=== PATIENT | female | born 2000 | race Caucasian/White ===

== ENCOUNTER 2025-07-15 09:18 | Emergency (ER) | payer OTHER, SELFPAY ==
--- NOTE | 2025-07-15 09:23 | ED_ITS ---
HPI - Head Injury General Chief complaint: Head Injury Stated complaint: Hit head under bed, Possible Concussion today Time Seen by Provider: 07/15/25 09:21 History of Present Illness HPI Narrative: Patient is a 25-year-old female without any significant past medical history comes into the ED from home for evaluation of head strike, patient states that she hit her head under the bed, is worried that she might have a concussion Related Data Allergies Allergy/AdvReac Type Severity Reaction Status Date / Time cephalexin (From Keflex) Allergy Rash Verified 07/15/25 09:33 Review of Systems Review of Systems Narrative: General: Positive head strike, Denies fever, chills, weight loss HEENT: Denies headache, eye drainage, eye irritation, head trauma, sore throat, voice change Cardiovascular: Denies any chest pain, palpitations, tachycardia Respiratory: Denies any shortness of breath, cough, wheeze, stridor GI/: Denies any abdominal pain, nausea, vomiting, diarrhea, bright red blood per rectum, melanotic stools, urinary frequency, urinary retention, dysuria, hematuria MSK: Denies any joint pain, muscle pains, swelling Skin: Denies any rashes, lesions, discoloration Neuro: Denies any headache, lightheadedness, dizziness, fainting, weakness Psych: Denies SI/HI Patient History Social History Smoking Status: Current every day smoker Exam Narrative Exam Narrative: General: Cooperative, well-developed, not in acute distress HEENT: Patient with a hematoma noted to the forehead, PERRLA, normal sclera, eyelids normal Neck: Active full range of motion, atraumatic Chest: Normal to inspection, negative crepitus, no overlying erythema ecchymosis Respiratory: Normal respiratory effort, not in acute respiratory distress, clear to auscultation bilaterally negative cough, wheeze, tachypnea, rhonchi, rales Cardiology: Regular rate rhythm negative gallop, murmur, rubs GI/: No tenderness to palpation, soft, non rigid, normal to inspection, exam deferred MSK: Full active range of motion in all 4 extremities, atraumatic, no tenderness to palpation of any bony prominences Skin: No rashes or lesions noted Neuro: Alert awake oriented x3, moves all 4 extremities spontaneously, cranial nerves intact, able to answer all questions appropriately follows commands appropriately Psych: Cooperative, negative suicidal or homicidal ideations Initial Vital Signs Initial Vital Signs: Vital Signs Temperature 97.7 F 07/15/25 09:32 Pulse Rate 78 07/15/25 09:32 Respiratory Rate 18 07/15/25 09:32 Blood Pressure 115/73 07/15/25 09:32 Pulse Oximetry 99 07/15/25 09:32 Oxygen Delivery Method Room Air 07/15/25 09:32 Course Orders Ordered: ED Orders 07/15/25 09:27 CT cervical spine wo con Stat CT head/brain wo con Stat Vital Signs Vital signs: Vital Signs - 8 hr 07/15/25 09:32 Temperature 97.7 F Pulse Rate 78 Respiratory Rate 18 Blood Pressure 115/73 Pulse Oximetry 99 Oxygen Delivery Method Room Air MDM - Head Injury MDM Narrative Medical decision making narrative: Patient is a 25-year-old female without any significant past medical history comes into the ED from home for evaluation of head strike, states that around hour ago she was under her bed was coming out and hit the forehead, she denies LOC denies any blood thinners states that she does have a dull headache but otherwise no other symptoms. On exam she has a hematoma noted to her forehead, she has NIH of 0 no other focal deficits, patient had CT scan of her head and neck which did not show any acute findings, patient's symptoms more likely concussion in nature, she was given strict return precautions she verbalized understanding of this and agrees to being discharged home with outpatient follow up Discharge Plan Departure Patient Disposition: Home Clinical Impression: CHI (closed head injury) Instructions: DI for Concussion, DI for Closed Head Injury Activity Restrictions/Additional Instructions: You may use Motrin Tylenol ice to help with your symptoms Please read the discharge instructions sheet carefully and bring all papers to all doctor follow-up visits, as it may contain information that your doctor may want to see. Disease processes change and evolve, if your symptoms worsen or if you develop any new symptoms that are concerning to you please return for evaluation. Your evaluation today does not show any evidence of any life- threatening/serious illnesses requiring admission to the hospital or surgery. Please follow-up with your doctor for re-evaluation in approximately 1 day. Seek immediate medical attention for any worrisome symptoms. *If you do not have a primary care provider please contact the [facility] Resource line at [phone]. They will ask some questions about your medical history and help get you set up with a doctor in the community. Stand Alone Forms: Patient Portal/API
--- NOTE | 2025-07-15 09:27 | DI.CT.S_ITS ---
PROCEDURE: CT CERVICAL SPINE WO CON INDICATIONS: trauma TECHNIQUE: Noncontrast 3 mm thick sections acquired from the skull base to the T4 level. Sagittal and coronal reformats were then constructed. For radiation dose reduction, the following was used: automated exposure control, adjustment of mA and/or kV according to patient size. COMPARISON: None. FINDINGS: Image quality: Excellent. Bones: No acute fractures or dislocations. Visualized superior ribs are intact. Soft tissues: Prevertebral soft tissues are normal in thickness. No paravertebral hematomas. No apical pneumothoraces. IMPRESSION: No acute displaced fracture or traumatic subluxation. Approved by: Jorge Mcdowell M.D. on 07/15/2025 at 9:51
--- NOTE | 2025-07-15 09:27 | DI.CT.S_ITS ---
PROCEDURE: CT HEAD/BRAIN WO CON INDICATIONS: Trauma, hematoma to forehead TECHNIQUE: Noncontrast 4.5 mm thick angled axial sections acquired from the foramen magnum to the vertex, with coronal and sagittal reformats. For radiation dose reduction, the following was used: automated exposure control, adjustment of mA and/or kV according to patient size. COMPARISON: None. FINDINGS: Image quality: Diagnostic. CSF spaces: Basal cisterns are patent. No extra-axial fluid collections. Ventricles are normal in size and shape. Brain: No midline shift. No intracranial mass effect or hemorrhage. Yo- white matter interface is normal. Skull and face: Mild frontal scalp edema. Calvarium and visualized facial bones are intact, without suspicious lesions. Sinuses: Visualized sinuses and mastoids are clear. IMPRESSION: No acute intracranial pathology. Approved by: Jorge Mcdowell M.D. on 07/15/2025 at 9:50
[2025-07-15 09:32] VITALS: BP 115/73; PULSE 78; RESP 18; TEMP 36.5; O2SAT 99
[2025-07-15 10:06] VITALS: BP 106/68; PULSE 72; O2SAT 99
== END 2025-07-15 10:22 | disposition home or self-care (01) ==
LOC: ED 09:29
PROVIDERS: Emergency Provider Student in an Organized Health Care Education/Training Program
DX: S09.90XA Unspecified injury of head, initial encounter (principal); W22.03XA Walked into furniture, initial encounter
CPT/HCPCS: 70450; 72125; 99281; 99284

== ENCOUNTER 2025-08-31 02:36 | Emergency (ER) | payer OTHER, SELFPAY ==
[2025-08-31 02:50] VITALS: BP 155/84; PULSE 81; RESP 19; TEMP 37.7; O2SAT 100; BMI 17.4
[2025-08-31 02:55] VITALS: BP 124/83; PULSE 106; RESP 26; O2SAT 100
--- NOTE | 2025-08-31 02:58 | ED.ABDPAIN ---
HPI - Abdominal Pain General Chief Complaint: Abdominal Pain Stated Complaint: Vomiting, Abdominal Pain Time Seen by Provider: 08/31/25 02:44 Source: patient Mode of arrival: Ambulatory History of Present Illness HPI narrative: 25-year-old female longstanding use of marijuana comes in for incessant vomiting and nausea and abdominal discomfort after marijuana usage. Related Data Allergies Allergy/AdvReac Type Severity Reaction Status Date / Time cephalexin (From Keflex) Allergy Rash Verified 07/15/25 09:33 haloperidol (From Haldol) AdvReac Verified 08/31/25 02:50 Review of Systems Review of Systems ROS Unobtainable: All systems reviewed & are unremarkable except as noted in HPI and below Patient History tobacco type: cigarettes Exam Narrative Exam Narrative: General: patient is actively nauseous and having abdominal spasms Head: normocephalic, atraumatic, HEENT: Pupils equal round reactive, eyes tracking well, neck supple, no JVD Heart: regular rate and rhythm, no murmurs, rubs, or gallops heard Lungs: clear to auscultation, no adventitious sounds Abdomen: soft , nontender, nondistended, positive bowel sounds Neurological: no focal neurological signs, moving all extremities well, alert and oriented x3, Psych: good judgment ,good insight, mood is normal. Initial Vital Signs Initial Vital Signs: Vital Signs Temperature 99.8 F H 08/31/25 02:50 Pulse Rate 81 08/31/25 02:50 Respiratory Rate 19 08/31/25 02:50 Blood Pressure 155/84 H 08/31/25 02:50 Pulse Oximetry 100 08/31/25 02:50 Oxygen Delivery Method Room Air 08/31/25 02:50 Course Orders Ordered: Discontinued Medications Droperidol (Droperidol 2.5 Mg/Ml Vial) 1.25 mg IV NOW ONE Stop: 08/31/25 04:14 Last Admin: 08/31/25 04:17 Dose: 1.25 mg Documented By: LIOR Hydromorphone HCl (Hydromorphone Hcl 0.5 Mg/0.5 Ml Syringe) 0.25 mg IV NOW ONE Stop: 08/31/25 03:01 Last Admin: 08/31/25 03:06 Dose: 0.25 mg Documented By: LIOR Hydromorphone HCl (Hydromorphone Hcl 0.5 Mg/0.5 Ml Syringe) 0.25 mg IV NOW ONE Stop: 08/31/25 03:46 Last Admin: 08/31/25 03:54 Dose: 0.25 mg Documented By: LIOR Lactated Ringer's (Lactated Ringers) 1,000 mls @ 1,000 mls/hr IV BOLUS ONE Stop: 08/31/25 03:57 Last Infusion: 08/31/25 03:57 Dose: Infused Documented By: Admin: 08/31/25 03:04 Dose: 1,000 mls/hr Documented By: LIOR Promethazine HCl (Promethazine 25 Mg Tablet) 12.5 mg PO NOW ONE Stop: 08/31/25 03:00 Last Admin: 08/31/25 03:04 Dose: 12.5 mg Documented By: LIOR Reevaluation(s) Reevaluation #1: Initial re-evaluation after Dilaudid doses and Phenergan did not show much improvement. Reevaluation #2: After droperidol was given, patient did feel much better and is ready to be discharged. She was also given a L of LR. Vital Signs Vital signs: Vital Signs - 8 hr 08/31/25 02:50 08/31/25 02:55 08/31/25 03:30 Temperature 99.8 F H Pulse Rate 81 106 H 79 Respiratory Rate 19 26 H 24 Blood Pressure 155/84 H 124/83 121/70 Pulse Oximetry 100 100 100 Oxygen Delivery Method Room Air Room Air Room Air 08/31/25 04:00 Temperature Pulse Rate 86 Respiratory Rate 31 H Blood Pressure 129/70 Pulse Oximetry 98 Oxygen Delivery Method MDM - Abdominal Pain MDM Narrative Medical decision making narrative: 25-year-old female with a history of long-time marijuana usage presents with most likely cannabinoid hyperemesis syndrome. She does feel much better after some droperidol and IV fluids. Advised to continue working with her therapist to cut back on usage and follow up as needed. Continue to hydrate well. Discharge Plan Departure Patient Disposition: Home Clinical Impression: Cannabinoid hyperemesis syndrome Instructions: DI for Cannabinoid Hyperemesis Syndrome Activity Restrictions/Additional Instructions: Continue to work with therapist to try to cut back on marijuana usage. Follow up as needed. Stand Alone Forms: Patient Portal/API
[2025-08-31] MEDS: PROMETHAZINE 25 MG TABLET 12.5 MG PO (03:04)
[2025-08-31] MEDS: LACTATED RINGERS 1,000 ML 1000 ML IV (03:04)
[2025-08-31 03:30] VITALS: BP 121/70; PULSE 79; RESP 24; O2SAT 100
[2025-08-31 04:00] VITALS: BP 129/70; PULSE 86; RESP 31; O2SAT 98
[2025-08-31] MEDS: droPERidol 2.5 MG/ML VIAL 1.25 MG IV (04:17)
[2025-08-31 04:59] VITALS: BP 117/58; PULSE 67; RESP 14; O2SAT 98
== END 2025-08-31 05:01 | disposition home or self-care (01) ==
PROVIDERS: Emergency Provider Family Medicine
DX: R11.16 Cannabis hyperemesis syndrome (principal); F12.988 Cannabis use, unspecified with other cannabis-induced disorder
CPT/HCPCS: 36415; 96361; 96374; 96375; 96376; 99284; J1171; J1790; J7120

== ENCOUNTER 2025-09-01 08:22 | Emergency (ER) | payer OTHER, SELFPAY ==
[2025-09-01] VITALS (8 sets, daily range): BP systolic 116–156; BP diastolic 63–70; PULSE 69–118; RESP 20; TEMP 37.2; O2SAT 97–100; BMI 22.8
--- NOTE | 2025-09-01 08:50 | ED_ITS ---
HPI - Abdominal Pain General Chief Complaint: Nausea/Vomiting/Diarrhea Stated Complaint: N/V shaky x 4days Time Seen by Provider: 09/01/25 08:40 Source: patient Mode of arrival: Ambulatory History of Present Illness HPI narrative: This is a 25-year-old female with cannabis hyperemesis. She was seen for the same thing yesterday. She has been using marijuana since her discharge from the emergency department. Has had numerous episodes of cannabis hyperemesis before, says it is hot showers make her symptoms better. She is complaining of epigastric pain and vomiting. No fevers, menstrual period just started today. No past medical history no prior surgical history Related Data Previous Rx's ?Medication ?Instructions ?Recorded promethazine 25 mg tablet 25 mg PO TID PRN nausea and 09/01/25 vomiting #14 tabs Allergies Allergy/AdvReac Type Severity Reaction Status Date / Time cephalexin (From Keflex) Allergy Rash Verified 09/01/25 08:44 haloperidol (From Haldol) AdvReac Verified 09/01/25 08:44 Patient History Social History Smoking Status: Current every day smoker Smoking Status: Current every day smoker tobacco type: cigarettes Exam Narrative Exam Narrative: Alert, hyperventilating. Tachycardia noted. Oral mucosa is moist neck is supple Lungs are clear Heart sounds are normal Abdomen is soft normal bowel sounds epigastric tenderness voluntary guarding Initial Vital Signs Initial Vital Signs: Vital Signs Pulse Rate 108 H 09/01/25 08:40 Pulse Oximetry 98 09/01/25 08:40 Course Orders Ordered: ED Orders 09/01/25 09:04 CBC Auto Diff [Complete Blood Count AUTO DIFF] Stat CMP [Comprehensive Metabolic Panel] Stat Lipase Stat Famotidine (Famotidine 20 Mg/2 Ml Vial) 20 mg IV NOW ARTUR Last Admin: 09/01/25 09:06 Dose: 20 mg Documented By: CATHI Discontinued Medications Droperidol (Droperidol 2.5 Mg/Ml Vial) 2.5 mg IV NOW ONE Stop: 09/01/25 08:48 Last Admin: 09/01/25 09:07 Dose: 2.5 mg Documented By: CATHI Sodium Chloride (Normal Saline 0.9%) 1,000 mls @ 1,000 mls/hr IV BOLUS ONE Stop: 09/01/25 09:46 Last Admin: 09/01/25 09:06 Dose: 1,000 mls/hr Documented By: CATHI Lorazepam (Lorazepam 2 Mg/Ml Inj) 0.5 mg IV NOW ONE Stop: 09/01/25 08:48 Last Admin: 09/01/25 09:07 Dose: 0.5 mg Documented By: CATHI Reevaluation(s) Reevaluation #1: Re-evaluated at 9:55 a.m.. Patient states she is feeling better. Would like to be discharged. She is confident she is not , has ondansetron at home says it does not typically work has used promethazine in the past with good results, I will write a prescription for promethazine Vital Signs Vital signs: Vital Signs - 8 hr 09/01/25 08:40 09/01/25 08:42 09/01/25 08:42 Temperature Pulse Rate 108 H 86 Respiratory Rate Blood Pressure 133/70 Pulse Oximetry 98 100 Oxygen Delivery Method 09/01/25 08:44 Temperature 98.9 F Pulse Rate 118 H Respiratory Rate 20 Blood Pressure 133/70 Pulse Oximetry 97 Oxygen Delivery Method Room Air MDM - Abdominal Pain Lab Data Lab results narrative: Labs were remarkable for a minimal leukocytosis nonspecific and not concerning in this situation. Lipase is normal. Minimal elevation transaminases not considered clinically significant 09/01/25 09:04 09/01/25 09:04 Labs: Lab Results 09/01/25 Range/Units 09:04 WBC 13.3 H (4.5-11.0) X10^3/uL RBC 4.82 (4.0-5.2) X10^6/uL Hgb 14.8 (12.0-16.0) g/dL Hct 42.3 (36-46) % MCV 87.8 (80-100) fL MCH 30.7 (26-34) PG MCHC 34.9 (30-36) % RDW 13.1 (11.6-14.8) % Plt Count 319 (150-400) X10^3/uL Neut % (Auto) 81.8 H (50-75) % Lymph % (Auto) 13.3 L (25-40) % [place] % (Auto) 4.1 (3-14) % Eos % (Auto) 0.0 L (2-4) % Baso % (Auto) 0.8 (0-2) % Neut # (Auto) 16206 H (3658-3867) /uL Lymph # (Auto) 1800 (7983-8228) /uL [place] # (Auto) 500 (0-900) /uL Eos # (Auto) 0 (0-450) /uL Baso # (Auto) 100 (0-100) /uL Sodium 133 L (137-145) mmol/L Potassium 4.3 (3.4-5.1) mmol/L Chloride 96 L (98-107) mmol/L Carbon Dioxide 21 L (22-32) mmol/L BUN 30 H (7-17) mg/dL Creatinine 0.85 (0.52-1.04) mg/dL Estimated GFR > 60 (>60) mL/min BUN/Creatinine Ratio 35.3 H (6-22) Glucose 104 H (70-99) mg/dL Calcium 9.5 (8.4-10.2) mg/dL Total Bilirubin 1.8 H (0.2-1.3) mg/dL AST 47 H (14-36) IU/L ALT 50 H (<35) IU/L Alkaline Phosphatase 42 (38-126) U/L Total Protein 8.9 H (6.3-8.2) g/dL Albumin 5.3 H (3.5-5.0) g/dL Globulin 3.6 (1.7-4.1) g/dL Albumin/Globulin Ratio 1.5 (1.0-2.8) Lipase 84 (23-300) U/L MDM Narrative Medical decision making narrative: A 25-year-old female complaining of vomiting. She has a history of cannabis emesis and describes this is atypical episode. Examination and labs were reassuring, she was treated with IV droperidol, lorazepam and Pepcid with good results. Patient plans to discontinue cannabis use she has a primary care provider that she can follow up with Discharge Plan Departure Patient Disposition: Home Clinical Impression: Cannabinoid hyperemesis syndrome, Acute vomiting Activity Restrictions/Additional Instructions: I am glad that we are able to get your feeling better today. I hope that you can stay away from using cannabis. Follow up soon with your primary care provider. May use promethazine as needed for nausea. Frequent small amounts of clear liquids initially for oral intake and then advance her diet as tolerated. If having uncontrolled vomiting or other acute symptoms recheck in the emergency department Prescriptions: New promethazine 25 mg tablet 25 mg PO TID PRN (Reason: nausea and vomiting) Qty: 14 0RF Stand Alone Forms: Patient Portal/API
[2025-09-01] MEDS: SODIUM CHLORIDE 0.9% 1,000 ML 1000 ML IV (09:06)
[2025-09-01] MEDS: FAMOTIDINE 20 MG/2 ML VIAL IV (09:06)
[2025-09-01] MEDS: droPERidol 2.5 MG/ML VIAL IV (09:07)
[2025-09-01 09:10] LABS: Add Manual Diff / Slide Review NO; Hematocrit 42.3 % (36-46); Hemoglobin 14.8 g/dL (12.0-16.0); Lymphocytes Absolute Auto 1800 /uL (1100-4500); Mean Corpuscular HGB Conc 34.9 % (30-36); Mean Corpuscular Hemoglobin 30.7 PG (26-34); Mean Corpuscular Volume 87.8 fL (80-100); Platelet Count 319 X10^3/uL (150-400)
[2025-09-01 09:22] LABS: Alanine Aminotransferase 50 IU/L (<35); Albumin 5.3 g/dL (3.5-5.0); Albumin Globulin Ratio 1.5 (1.0-2.8); Alkaline Phosphatase 42 U/L (38-126); Blood Urea Nitrogen 30 mg/dL (7-17); Calcium 9.5 mg/dL (8.4-10.2); Carbon Dioxide 21 mmol/L (22-32); Chloride 96 mmol/L (98-107); Estimated Glomerular Filt Rate > 60 mL/min (>60); Globulin 3.6 g/dL (1.7-4.1); Glucose 104 mg/dL (70-99); Lipase 84 U/L (23-300); Potassium 4.3 mmol/L (3.4-5.1); Sodium 133 mmol/L (137-145); Total Protein 8.9 g/dL (6.3-8.2)
[2025-09-01 09:23] LABS: HEMOLYSIS 121 (0-50)
== END 2025-09-01 09:55 | disposition home or self-care (01) ==
PROVIDERS: Emergency Provider Emergency Medicine
DX: R11.16 Cannabis hyperemesis syndrome (principal); R00.0 Tachycardia, unspecified; R11.10 Vomiting, unspecified
CPT/HCPCS: 36415; 80053; 83690; 85025; 96361; 96374; 96375; 99284; J1790; J2060; J7030

== ENCOUNTER 2025-09-02 08:39 | Emergency (ER) | payer OTHER, SELFPAY ==
[2025-09-02 08:47] VITALS: BP 159/94; PULSE 95; O2SAT 99
--- NOTE | 2025-09-02 08:48 | ED_ITS ---
HPI - Abdominal Pain General Chief Complaint: Nausea/Vomiting/Diarrhea Stated Complaint: Not getting better from ER visit yesterday Time Seen by Provider: 09/02/25 08:42 Source: patient, family (Has been at bedside), RN notes reviewed and old records reviewed Mode of arrival: Ambulatory Limitations: no limitations History of Present Illness HPI narrative: 25-year-old female who reports she has hyperemesis cannabis, she states she has had 5 days of symptoms. She has had episodes in the past. Today is her 3rd visit. She states her last use of marijuana was 2 days prior. She denies fevers. She states she is shaky. She denies chest pain or shortness of breath. She describes abdominal epigastric pain. Nausea and vomiting. Patient states she has been having regular bowel movements which have not been diarrhea or constipated. Denies any dysuria urgency or frequency. No new vaginal bleeding or discharge. Patient states she does not take any daily medications. She denies any prior surgeries. States she has not allergy to Keflex which causes a rash and haloperidol. She states she has had droperidol without issue and has been helpful. She does use tobacco, denies any alcohol, denies any recreational drugs other than marijuana. She is accompanied by her . Related Data Previous Rx's ?Medication ?Instructions ?Recorded promethazine 25 mg tablet 25 mg PO TID PRN nausea and 09/01/25 vomiting #14 tabs Allergies Allergy/AdvReac Type Severity Reaction Status Date / Time cephalexin (From Keflex) Allergy Rash Verified 09/02/25 08:59 haloperidol (From Haldol) AdvReac Verified 09/02/25 08:59 Review of Systems Review of Systems ROS Unobtainable: All systems reviewed & are unremarkable except as noted in HPI and below Patient History Social History Smoking Status: Current every day smoker tobacco type: cigarettes Exam Narrative Exam Narrative: GENERAL: Alert and oriented x three, thin female in mild distress HEENT: Head normocephalic, atraumatic, EOMI, pupils reactive, face symmetric, moist mucous membranes NECK: Supple, full range of motion CARDIOVASCULAR: Regular rate and rhythm without murmurs, rubs or gallops. RESPIRATORY: Breath sounds equal bilaterally, no wheezes rales or rhonchi. ABDOMEN: Soft, nontender. Nondistended. Hyperactive bowel sounds all 4 quadrants. No guarding or rebound, rigidity, no mass, patient had several dry heaves. : No CVA tenderness EXTREMITIES: Normal range of motion, no clubbing or edema. Neurovascularly intact NEUROLOGICAL: Cranial nerves II through XII grossly intact. Moving all extremities SKIN: Warm, dry, no petechiae, no rashes or lesions. Initial Vital Signs Initial Vital Signs: Vital Signs Pulse Rate 95 H 09/02/25 08:47 Blood Pressure 159/94 H 09/02/25 08:47 Pulse Oximetry 99 09/02/25 08:47 Course Orders Ordered: ED Orders 09/02/25 08:54 CBC Auto Diff [Complete Blood Count AUTO DIFF] Stat CMP [Comprehensive Metabolic Panel] Stat Lipase Stat Test Serum,Qual Stat Discontinued Medications Droperidol (Droperidol 2.5 Mg/Ml Vial) 2.5 mg IV NOW ONE Stop: 09/02/25 08:48 Last Admin: 09/02/25 09:03 Dose: 2.5 mg Documented By: CATHI POTASSIUM CHLORIDE IN WATER (Potassium Cl 10 Meq/100 Ml [place]ena) 10 meq in 100 mls @ 100 mls/hr IV Q1H ARTUR Stop: 09/02/25 13:59 Sodium Chloride (Normal Saline 0.9%) 1,000 mls @ 1,000 mls/hr IV BOLUS ONE Stop: 09/02/25 10:51 Potassium Chloride (Potassium Chloride 20 Meq Tab) 40 meq PO NOW ONE Stop: 09/02/25 10:04 Last Admin: 09/02/25 10:08 Dose: 40 meq Documented By: CATHI(2) Vital Signs Vital signs: Vital Signs - 8 hr 09/02/25 08:47 09/02/25 08:47 09/02/25 08:59 Temperature 98.7 F Pulse Rate 95 H 89 Respiratory Rate 18 Blood Pressure 159/94 H 159/94 H Pulse Oximetry 99 97 Oxygen Delivery Method Room Air 09/02/25 09:00 09/02/25 09:26 09/02/25 09:26 Temperature Pulse Rate 92 H 87 Respiratory Rate Blood Pressure 141/96 H Pulse Oximetry 100 99 Oxygen Delivery Method 09/02/25 09:30 09/02/25 09:30 09/02/25 10:00 Temperature Pulse Rate 79 Respiratory Rate Blood Pressure 148/96 H 133/76 Pulse Oximetry 98 Oxygen Delivery Method 09/02/25 10:00 Temperature Pulse Rate 97 H Respiratory Rate Blood Pressure Pulse Oximetry 96 Oxygen Delivery Method MDM - Abdominal Pain Lab Data 09/02/25 08:54 09/02/25 08:54 Labs: Lab Results 09/02/25 Range/Units 08:54 WBC 11.2 H (4.5-11.0) X10^3/uL RBC 4.59 (4.0-5.2) X10^6/uL Hgb 14.0 (12.0-16.0) g/dL Hct 40.3 (36-46) % MCV 87.8 (80-100) fL MCH 30.5 (26-34) PG MCHC 34.7 (30-36) % RDW 13.5 (11.6-14.8) % Plt Count 304 (150-400) X10^3/uL Neut % (Auto) 65.5 (50-75) % Lymph % (Auto) 26.2 (25-40) % [place] % (Auto) 5.5 (3-14) % Eos % (Auto) 1.3 L (2-4) % Baso % (Auto) 1.5 (0-2) % Neut # (Auto) 7300 H (8329-6364) /uL Lymph # (Auto) 2900 (3351-0117) /uL [place] # (Auto) 600 (0-900) /uL Eos # (Auto) 100 (0-450) /uL Baso # (Auto) 200 H (0-100) /uL Sodium 136 L (137-145) mmol/L Potassium 3.0 L D (3.4-5.1) mmol/L Chloride 97 L (98-107) mmol/L Carbon Dioxide 24 (22-32) mmol/L BUN 23 H (7-17) mg/dL Creatinine 0.89 (0.52-1.04) mg/dL Estimated GFR > 60 (>60) mL/min BUN/Creatinine Ratio 25.8 H (6-22) Glucose 101 H (70-99) mg/dL Calcium 9.4 (8.4-10.2) mg/dL Total Bilirubin 1.6 H (0.2-1.3) mg/dL AST 34 (14-36) IU/L ALT 42 H (<35) IU/L Alkaline Phosphatase 45 (38-126) U/L Total Protein 8.3 H (6.3-8.2) g/dL Albumin 5.1 H (3.5-5.0) g/dL Globulin 3.2 (1.7-4.1) g/dL Albumin/Globulin Ratio 1.6 (1.0-2.8) Lipase 133 D (23-300) U/L Serum , Qual Negative (Negative) MDM Narrative Medical decision making narrative: Labs labs show white count 11.2 improved from 13 yesterday, hemoglobin and platelets are appropriate, chemistries show hypokalemia with a potassium of 3 patient was 4.3 yesterday sodium is 136 chloride 97 BUN 23 with a creatinine of 0.89 glucose is 101 bilirubin is 1.6 was 1.8 on 09/01/2025 AST is 34 with a ALT 42 lipase is 133 Patient had droperidol yesterday which she also states was very helpful. Discussed with the patient we would like to give IV potassium she states she is feeling a lot better she is willing to try an oral tablet but states she needs to leave. We did review her findings from today. She is willing take oral potassium in his able to tolerate this in the department. Suspect hyperemesis cannabis syndrome but bilirubin is elevated although trending down words. Discussed the need for follow up and recheck of her labs, patient did not give a sample for urine here today. Discharge Plan Departure Patient Disposition: Home Clinical Impression: Hypokalemia, Elevated bilirubin Instructions: DI for Vomiting -- Adult Activity Restrictions/Additional Instructions: Your labs today do show that your potassium is low, you are given a dose of oral potassium. Your bilirubin is also elevated 1.6 but improving from yesterday. These should be rechecked in the future to make sure that are improved. You can use the antiemetic medication prescribed yesterday. I would recommend cessation of any marijuana products for six months to see if this improves your symptoms. If you are having persistent but mild symptoms I would recommend having imaging of the right upper quadrant of your abdomen. Please return for fevers, persistent vomiting, rapidly worsening or new abdominal back or flank pain, black or bloody stools, new urinary changes or other new or concerning changes. Prescriptions: No Action promethazine 25 mg tablet 25 mg PO TID PRN (Reason: nausea and vomiting) Qty: 14 0RF Stand Alone Forms: Patient Portal/API
[2025-09-02 08:59] VITALS: BP 159/94; PULSE 89; RESP 18; TEMP 37.1; O2SAT 97; BMI 22.8
[2025-09-02 09:00] VITALS: PULSE 92; O2SAT 100
[2025-09-02] MEDS: droPERidol 2.5 MG/ML VIAL IV (09:03)
[2025-09-02 09:09] LABS: Add Manual Diff / Slide Review NO; Hematocrit 40.3 % (36-46); Hemoglobin 14.0 g/dL (12.0-16.0); Lymphocytes Absolute Auto 2900 /uL (1100-4500); Mean Corpuscular HGB Conc 34.7 % (30-36); Mean Corpuscular Hemoglobin 30.5 PG (26-34); Mean Corpuscular Volume 87.8 fL (80-100); Platelet Count 304 X10^3/uL (150-400)
[2025-09-02 09:20] LABS: Alanine Aminotransferase 42 IU/L (<35); Albumin 5.1 g/dL (3.5-5.0); Albumin Globulin Ratio 1.6 (1.0-2.8); Alkaline Phosphatase 45 U/L (38-126); Blood Urea Nitrogen 23 mg/dL (7-17); Calcium 9.4 mg/dL (8.4-10.2); Carbon Dioxide 24 mmol/L (22-32); Chloride 97 mmol/L (98-107); Estimated Glomerular Filt Rate > 60 mL/min (>60); Globulin 3.2 g/dL (1.7-4.1); Glucose 101 mg/dL (70-99); HEMOLYSIS 27 (0-50); Lipase 133 U/L (23-300); Potassium 3.0 mmol/L (3.4-5.1); Sodium 136 mmol/L (137-145); Total Protein 8.3 g/dL (6.3-8.2)
[2025-09-02 09:26] VITALS: BP 141/96; PULSE 87; O2SAT 99
[2025-09-02 09:27] LABS: Pregnancy Test Serum,Qual Negative (Negative)
[2025-09-02 09:30] VITALS: BP 148/96; PULSE 79; O2SAT 98
[2025-09-02 10:00] VITALS: BP 133/76; PULSE 97; O2SAT 96
[2025-09-02] MEDS: POTASSIUM CHLORIDE 20 MEQ TAB 40 MEQ PO (10:08)
== END 2025-09-02 10:18 | disposition home or self-care (01) ==
PROVIDERS: Emergency Provider Emergency Medicine
DX: E87.6 Hypokalemia (principal); R17 Unspecified jaundice
CPT/HCPCS: 36415; 80053; 83690; 84703; 85025; 96374; 99284; J1790

== ENCOUNTER → 2025-10-13 08:01 | Outpatient (CLI) | payer OTHER, SELFPAY ==
[2025-10-13 08:59] LABS: Influenza A - CEPHEID Flu A NEGATIVE (NEGATIVE); Influenza B - CEPHEID Flu B NEGATIVE (NEGATIVE)
[2025-10-13 09:02] LABS: COVID-19 CEPHEID 4-PLEX PCR Negative (Negative)
== END ==
PROVIDERS: Visit Provider Nurse Practitioner Family
DX: R05.1 Acute cough (principal)
CPT/HCPCS: 87637

== ENCOUNTER → 2025-10-13 08:25 | Outpatient (CLI) | payer OTHER, SELFPAY ==
--- NOTE | 2025-10-13 08:26 | DI.RAD.S_ITS ---
PROCEDURE: XR CHEST 2V INDICATIONS: Cough TECHNIQUE: 2 views of the chest were acquired. COMPARISON: None. FINDINGS: Surgical changes and devices: None. Lungs and pleura: Lungs are clear. No pleural effusions or pneumothorax. Mediastinum: Mediastinal contours are normal. Heart size is normal. Bones and chest wall: No suspicious bony abnormalities. Soft tissues appear unremarkable. IMPRESSION: No acute cardiopulmonary abnormality is seen. Approved by: Jorge Mcdowell M.D. on 10/13/2025 at 10:03
== END ==
PROVIDERS: PCP Student in an Organized Health Care Education/Training Program; Referring Provider Nurse Practitioner Family; Visit Provider Nurse Practitioner Family
DX: R05.1 Acute cough (principal)
CPT/HCPCS: 71046; 87637

== ENCOUNTER 2025-10-19 15:07 | Emergency (ER) | payer OTHER, SELFPAY ==
[2025-10-19 15:14] VITALS: BP 118/81; PULSE 91; RESP 18; TEMP 36.6; O2SAT 100; BMI 17.1
[2025-10-19 15:36] LABS: Add Manual Diff / Slide Review NO; Hematocrit 42.4 % (36-46); Hemoglobin 14.4 g/dL (12.0-16.0); Lymphocytes Absolute Auto 2500 /uL (1100-4500); Mean Corpuscular HGB Conc 34.0 % (30-36); Mean Corpuscular Hemoglobin 30.1 PG (26-34); Mean Corpuscular Volume 88.6 fL (80-100); Platelet Count 346 X10^3/uL (150-400)
[2025-10-19 15:48] LABS: Alanine Aminotransferase 20 IU/L (<35); Albumin 4.5 g/dL (3.5-5.0); Albumin Globulin Ratio 1.6 (1.0-2.8); Alkaline Phosphatase 44 U/L (38-126); Blood Urea Nitrogen 17 mg/dL (7-17); Calcium 9.3 mg/dL (8.4-10.2); Carbon Dioxide 24 mmol/L (22-32); Chloride 107 mmol/L (98-107); Estimated Glomerular Filt Rate > 60 mL/min (>60); Globulin 2.9 g/dL (1.7-4.1); Glucose 86 mg/dL (70-99); HEMOLYSIS 17 (0-50); Lipase 85 U/L (23-300); Potassium 4.1 mmol/L (3.4-5.1); Sodium 139 mmol/L (137-145); Total Protein 7.4 g/dL (6.3-8.2)
--- NOTE | 2025-10-19 19:01 | PC.NURSE ---
Requesting to have IV removed so that she can leave. Signed [facility] paperwork.
== END 2025-10-19 19:02 | disposition left against medical advice (07) ==
PROVIDERS: Emergency Medicine; Emergency Provider Emergency Medicine; PCP Student in an Organized Health Care Education/Training Program
DX: S92.322A Displaced fracture of second metatarsal bone, left foot, initial encounter for closed fracture (principal); W22.8XXA Striking against or struck by other objects, initial encounter
CPT/HCPCS: 36415; 80053; 81003; 81025; 83690; 85025; 99283

== ENCOUNTER 2025-10-20 02:17 | Emergency (ER) | payer OTHER, SELFPAY ==
[2025-10-20 02:25] VITALS: BP 104/59; PULSE 81; RESP 15; TEMP 36.9; O2SAT 98; BMI 17.4
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
[2025-10-20 05:12] VITALS: BP 143/80; PULSE 88; RESP 16; O2SAT 100
== END 2025-10-20 05:16 | disposition home or self-care (01) ==
PROVIDERS: Emergency Provider Emergency Medicine; PCP Student in an Organized Health Care Education/Training Program
DX: S92.322A Displaced fracture of second metatarsal bone, left foot, initial encounter for closed fracture (principal); W20.8XXA Other cause of strike by thrown, projected or falling object, initial encounter
CPT/HCPCS: 73610; 73630; 99283